=== PATIENT | female | born 1965 | race Caucasian/White ===

== ENCOUNTER → 2016-11-12 | Outpatient (CLI) | payer OTHER ==
--- NOTE | 2016-11-12 11:16 | RAD ---
Cervical spine, 3 views, 11/12/2016: History: Follow-up fracture, neck and back pain No previous studies are available at this time for comparison purposes. There has been previous anterior fusion of the C5 through C7 vertebral bodies. There are surgical wires related to the posterior elements at C1-2. The vertebral body alignment is anatomic. There are moderate scattered spurs at the disc levels. There are extensive degenerative changes involving multiple facet joints bilaterally. No recent fracture is identified. The presacral soft tissues are unremarkable. IMPRESSION: 1. Previous anterior spinal fusion from C5 through C7. 2. Posterior fixation wires are present at C1-2. 3. Extensive multilevel degenerative change.
== END | disposition home or self-care (01) ==
LOC: RAD 10:01
PROVIDERS: ATTEND Neuromusculoskeletal Medicine, Sports Medicine
DX: M47.892 Other spondylosis, cervical region (principal); M54.9 Dorsalgia, unspecified; M54.2 Cervicalgia
CPT/HCPCS: 72040